=== PATIENT | male | born 1960 | race Caucasian/White ===

== ENCOUNTER → 2020-05-02 09:39 | Outpatient (CLI) | payer BC, SELFPAY ==
--- NOTE | 2020-05-02 09:49 | XR_ITS ---
PROCEDURE: XR CERVICAL SPINE 5V CLINICAL INDICATION: RT CERVICAL RADICULOPATHY COMPARISON: No exams were available for comparison FINDINGS: No fracture or dislocation. No lytic or blastic change. There is normal mineralization. There is degenerative disc disease at C5-C6 and to lesser degree at C6-C7. No significant foraminal narrowing is evident. IMPRESSION: Mild degenerative disc disease C5-C6 and C6-C7 Dictated by: Petar Sullivan MD 05/02/2020 15:12 Petar Sullivan MD in [place] 05/02/2020 15:12
== END ==
PROVIDERS: PCP Family Medicine; Visit Provider Family Medicine
DX: M54.12 Radiculopathy, cervical region (principal)
CPT/HCPCS: 72050

== ENCOUNTER 2020-05-29 09:00 | Outpatient (RCR) | payer BC, SELFPAY ==
--- NOTE | 2020-05-14 10:41 | HMH.PTOPEV ---
PT Outpatient Evaluation Rehab PT Outpatient Evaluation Start: 05/14/20 10:13 Freq: Status: Active Protocol: Document 05/14/20 10:13 ANDERS (Rec: 05/14/20 10:41 ANDERS [id number]) Electronically Signed By Hal Gutierrez PT 05/14/20 10:13 Outpatient Therapy Subjective History Subjective History This is the initial Physical Therapy evaluation for Quentin Zendejas. Pt is a 60 y/o male referred to PT for c/o RUE paresthesia and cervical radiculopathy. Pt reports he began having symptoms 2-3 month ago and has been steadily progressively getting worse. Pt reports when he turns his head to the R his S& S starts almost immediately. 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 Chief Complaint Paresthesia,Weakness,Decreased Seasonal Tax Preparer Strength,Decreased Coordination Symptom Type Numbness,Tingling Symptoms Relieved By Rest/Positioning Symptoms Aggravated By Physical Activity Prior Functional Limitations None Current Functional Limitations Lifting,Recreation Activity Symptom Description Intermittent Level of pain today (0-10) 0 Pain scale - at its best (0-10) 0 Pain scale - at its worst (0-10) 0 Cervical Eval Palpation Cervical/Thoracic Palpation Findings None/Normal Posture Head/C-Spine Posture Sitting Position C-Spine Flattened Head/C-Spine Posture Standing Position C-Spine Flattened AROM Cervical Spine Extension Active Range of 50 Motion (degrees) Cervical Spine Flexion Active Range of 40 Motion (degrees) Cervical Spine Right Lateral Flexion 25 Active Range of Motion (degrees) Cervical Spine Left Lateral Flexion 30 Active Range of Motion (degrees) Cervical Spine Right Rotation Active 70 Range of Motion (degrees) Cervical Spine Left Rotation Active 80 Range of Motion (degrees) Altered Sensation Right Upper extremity Dermatomes C6,C7,C8 Comment decreased sensation on R Special Test C-Spine Foraminal Compression (Spurling) Positive Right Test C-Spine Foraminal Distraction Test Positive C-Spine Compression Test Negative Left,Negative Right Outpatient Therapy Assessment Impairments Problems/Impairmments Impaired Range of Motion,
== END 2020-05-29 09:05 | disposition home or self-care (01) ==
LOC: PT 09:00
PROVIDERS: PCP Family Medicine; Visit Provider Family Medicine
DX: M54.12 Radiculopathy, cervical region (principal)
CPT/HCPCS: 97010; 97012; 97014; 97110; 97163; G0283

== ENCOUNTER → 2020-06-06 10:56 | Outpatient (CLI) | payer BC, SELFPAY ==
--- NOTE | 2020-06-06 10:58 | MR_ITS ---
PROCEDURE: MR CERVICAL SPINE WO CON CLINICAL INDICATION: RIGHT CERVICAL RADICULOPATHY PT C/O RT SIDED CERVICAL RADICULOPATHY WITHOUT TRAUMA OR INJURY. PRIOR C-SPINE XRAYS DONE 05/02/20 COMPARISON: CR XR CERVICAL SPINE 5V from 05/02/2020 TECHNIQUE: Standard multiplanar multiecho sequences are performed without contrast. 3-D MIP and myelographic images are also rendered and reviewed FINDINGS: There is a mild degree of motion artifact which somewhat obscures fine detail. There is normal alignment. The craniocervical junction has an unremarkable appearance. C2-C3: Unremarkable. C3-C4: Unremarkable. C4-C5: Unremarkable. C5-C6: Mild degenerative disc disease with minimal bulging disc with mild bilateral foraminal narrowing. There is some hypertrophic changes noted the somewhat laterally on the right causing right sided foraminal narrowing. C6-C7: Mild degenerative disc disease with mild bulging disc and mild bilateral foraminal narrowing slightly greater on the right. C7-T1: Unremarkable. IMPRESSION: Mild degenerative disc disease at C5-C6 and C6-C7 with mild bulging disc and with mild bilateral foraminal narrowing as described above. No extruded herniated disc or canal stenosis apparent. Motion artifact does somewhat limit fine detail. Subtle abnormalities may not be identified due to the limitations Dictated by: Petar Sullivan MD 06/11/2020 09:22 Petar Sullivan MD in [place] 06/11/2020 09:22
--- NOTE | 2020-06-06 11:04 | XR_ITS ---
PROCEDURE: XR ORBIT BILATERAL MIN 4V CLINICAL INDICATION: RULE OUT METAL FOREIGN BODY FOR MRI COMPARISON: FINDINGS: Mukherjee view show both orbital rims and orbital floors of the intact. There is no metallic foreign body seen in either orbit. The frontal sinuses are clear, there may be mild mucoperiosteal thickening in the maxillary sinuses. IMPRESSION: Negative for metallic foreign body Dictated by: Dr. Liang Nicholas MD 06/06/2020 11:28 Dr. Liang Nicholas MD in [place] 06/06/2020 11:28
== END ==
PROVIDERS: PCP Family Medicine; Visit Provider Family Medicine
DX: H05.53 Retained (old) foreign body following penetrating wound of bilateral orbits (principal); M54.12 Radiculopathy, cervical region
CPT/HCPCS: 70200; 72141; 76376

== ENCOUNTER 2024-02-03 10:01 | Day surgery (SDC) | payer BC, SELFPAY ==
[2024-02-01 11:33] VITALS: BMI 29.8
[2024-02-03] VITALS (8 sets, daily range): BP systolic 96–152; BP diastolic 59–91; PULSE 70–76; RESP 16–18; TEMP 36.3; O2SAT 97–99; BMI 29.8
[2024-02-03] MEDS: LACTATED RINGERS 1000ML 1,000 ML 100 ML IV (11:26)
--- NOTE | 2024-02-03 11:38 | P.PNANES_ITS ---
[facility] Disclaimer: The information contained in this section may have been updated after the patient was seen, as this information can be updated by other users. Medical History Type 2 diabetes mellitus Hypertension Family History Other No significant family history Social History Smoking Status: Current every day smoker alcohol intake: never substance use type: marijuana current occupational status: employed Travel in the last 8 weeks: None caffeine: Yes [facility] Anesthesia Checklist Patient Identification Patient Identification: Arm Band and Verbal (Name & ) Structural Data Admitted From: Home Planned Operative Procedure/s: Colonoscopy Consent for Planned Operative Procedure(s) Verified: Yes Verified Documents: Surgical Consent and History and Physical NPO Status Verified Time NPO: 00:00 Additional verifications Anesthesia Reactions: No Airway Assessment Mallampati Score:: Class III C-Spine Mobility Assessed: Yes TMJ Mobility Assessed: Yes Dentition: Edentulous Neurological Assessment Level of Consciousness: Awake Hx Seizures: No Numbness or tingling in extremities: No Anesthesia Plan Anesthesia Risk discussed: Yes Anesthesia Plan: Verified ASA Class: II Anesthesia Type: MAC
--- NOTE | 2024-02-03 14:23 | P.PCN_ITS ---
Procedure: Date: 02/03/24 Patient Date of :: 1960 Procedure Performed:: Colonoscopy Indications:: The patient is a 63-year-old who presents for screening colonoscopy. This is the patient's first colonoscopy Performing Provider:: Atilio Staples MD Referring Provider:: Ronni Pitt MD Sedation:: See RN records Procedure:: After placing the patient in the left lateral decubitus position, the colo noscopy was gently inserted into the rectum and under direct visualization advanced to the cecum which was identified by transillumination in the right lower quadrant, identification of the ileocecal valve, appendiceal orifice, and cecal strap. Color, texture, mucosa, and anatomy of the colon were carefully examined with the scope. Findings:: The quality of the bowel preparation was good except for the sigmoid colon which was fair. Time was spent irrigating and cleansing mucosa. There was a large (greater than 10 mm) pedunculated polyp in the sigmoid colon, the polyp appeared inflammed. The polyp was removed by hot snare polypectomy. The polyp was retrieved. There was a medium size (8 to 9 mm) sessile polyp in the sigmoid colon. The polyp was removed by hot snare polypectomy. The polyp was retrieved. There were four sessile polyps measuring between 4 to 7 mm in size in the sigmoid colon. The polyps removed by cold snare polypectomy. There was sigmoid diverticulosis. There were five sessile polyps in the rectum measuring between 4 to 7 mm in size. The polyps removed by cold snare polypectomy. There were internal hemorrhoids seen on retroflexion view of the the rectum. Impression: Multiple polyps within the rectum and sigmoid colon Diverticulosis Recommendations:: Await pathology results Repeat colonoscopy in 1 to 2 years depending on pathology results Complications:: None Estimated blood obtained (mL): 0 Colonoscopy Component Colonoscopy Component Was a colonoscopy performed during today's procedure?: Yes Recommended follow up colonoscopy of at least 10 years?: Yes
--- NOTE | 2024-02-03 14:30 | P.PNANES_ITS ---
[facility] Anesthesia Record Part I Anesthesia Record I Intake, IV Amount: 300 Hydration: Adequate Estimated blood loss (mL): 5 Urine output (mL): 0 Blood Products used (#): none Blood Pressure: 96/59 SaO2: 97 Pulse Rate: 72 Airway Patency: Patent Respiratory Rate: 16 Temperature: 97.4 F Patient is:: Awake (Talking) and Stable Stable to PACU at:: 14:30
[2024-02-05 06:37] LABS: POC Glucose,Bedside 126 (70-110)
== END 2024-02-03 14:54 | disposition home or self-care (01) ==
PROVIDERS: PCP Family Medicine; Visit Provider Internal Medicine
PROC: (CPT 45385; principal; 2024-02-03 11:30)
DX: Z12.11 Encounter for screening for malignant neoplasm of colon (principal); D12.7 Benign neoplasm of rectosigmoid junction; D12.5 Benign neoplasm of sigmoid colon; K63.5 Polyp of colon; K57.30 Diverticulosis of large intestine without perforation or abscess without bleeding; K64.8 Other hemorrhoids
CPT/HCPCS: 45385; 82962; J7120

== ENCOUNTER 2024-05-04 10:02 | Emergency (ER) | payer BC, SELFPAY ==
[2024-05-04 11:30] VITALS: BP 121/75; PULSE 84; RESP 18; TEMP 36.6; O2SAT 95; BMI 28.5
--- NOTE | 2024-05-04 11:41 | EXP.UTC ---
Discharge Plan Disposition Patient Disposition: Home, Self-Care Condition: Good Prescriptions Prescriptions: New cyclobenzaprine 10 mg Tablet 10 mg PO BID PRN (Reason: Muscle Spasm) Qty: 20 0RF methylprednisolone 4 mg Tablets,Dose Pack 4 mg PO DIRECTED 6 Days Qty: 21 0RF Rx Instructions: Take 1 pack as directed for 6 days No Action atorvastatin 10 mg Tablet 10 mg PO HS amlodipine 2.5 mg Tablet 2.5 mg PO DAILY Mounjaro 2.5 mg/0.5 mL Pen Injector 2.5 mg SQ WEEKLY Rx Instructions: for 4 weeks Referrals Follow up/Referrals: Ayden Pitt MD [Primary Care Provider] - See instructions Activity Restrictions/Add. Instructions Additional Instructions/Restrictions: Go home and rest. It would be best if you rested tomorrow too. No heavy lifting & No twisting for the next few days. Take the oral medications as directed. The muscle relaxer (cyclobenzaprine--Flexeril) will make you drowsy, so don't drive or operate heavy machinery after taking it. Don't start the oral steroids (medrol dose pack) until tomorrow, since you had the shots in here today. Follow up with your regular doctor. GO TO THE ER FOR ANY WORSENING SYMPTOMS OR CONCERN, ESPECIALLY BOWEL OR BLADDER ISSUES, SADDLE AREA NUMBNESS, FEVER, ETC Clinical Impressions Clinical Impression: Low back pain Instructions Patient Instructions: Cyclobenzaprine, Methylprednisolone, Ketorolac Injection, Dexamethasone Injection Print Language Print Language: [place] Discharge ED Provider: Paul Hernandez [facility] General Stated complaint: lower back pain Time Seen by Provider: 05/04/24 11:41 Related Data Home Medications ?Medication ?Instructions ?Recorded ?Confirmed amlodipine 2.5 mg tablet 2.5 mg PO DAILY 01/26/24 05/04/24 atorvastatin 10 mg tablet 10 mg PO HS 01/26/24 05/04/24 tirzepatide 2.5 mg/0.5 mL 2.5 mg SQ WEEKLY 01/26/24 05/04/24 subcutaneous pen injector (Mounjaro) Previous Rx's ?Medication ?Instructions ?Recorded cyclobenzaprine 10 mg tablet 10 mg PO BID PRN Muscle Spasm #20 05/04/24 tabs methylprednisolone 4 mg tablets in 4 mg PO DIRECTED 6 days #21 tabs 05/04/24 a dose pack Allergies Allergy/AdvReac Type Severity Reaction Status Date / Time No Known Allergies Allergy Verified 05/04/24 11:44 [facility] Disclaimer: The information contained in this section may have been updated after the patient was seen, as this information can be updated by other users. Medical History (Updated 05/04/24 @ 12:26 by Paul Hernandez APRN) Hyperlipidemia Type 2 diabetes mellitus Hypertension Surgical History (Updated 05/04/24 @ 11:45 by Zeina De La Rosa RN) History of cholecystectomy Family History Other No significant family history Social History (Updated 02/03/24 @ 11:40 by Dina Medina CRNA) Smoking Status: Current every day smoker alcohol intake: never substance use type: marijuana current occupational status: employed Travel in the last 8 weeks: None caffeine: Yes ROS Obtained: Yes All systems reviewed & no additional complaints except as documented Constitutional Constitutional: Denies chills and Denies fever(s) Eyes Eyes: Denies eye discharge ENT Ears, Nose, Mouth, and Throat: Denies dizziness, Denies otalgia, Denies neck pain and Denies sore throat Cardiovascular Cardiovascular: Denies chest pain Respiratory Respiratory: Denies shortness of breath, Denies chest congestion, Denies cough, Denies stridor and Denies wheezing Gastrointestinal Gastrointestingal: Denies nausea or vomiting Musculoskeletal Musculoskeletal: Reports as per HPI, Reports back pain and Denies neck pain Integumentary/Breasts Skin/Breast: Denies rash Neurologic Neurologic: Denies dizziness and Denies paresthesias Allergic/Immunologic Allergic/Immunologic: Denies wheezing Physical Exam General General appearance: alert and in no apparent distress Head Head exam: atraumatic, normocephalic and normal inspection Eye Eye exam: Present normal appearance, PERRL and EOMI ENT ENT exam: Present normal exam, normal oropharynx, mucous membranes moist, TM's normal bilaterally and normal external ear exam Neck Neck exam: Present normal inspection, full ROM and trachea midline; Absent meningismus or lymphadenopathy Chest Chest inspection: Present normal inspection and symmetric chest wall rise; Absent tenderness Respiratory Respiratory exam: Present normal lung sounds bilaterally; Absent respiratory distress Cardiovascular Cardiovascular exam: Present regular rate and normal rhythm; Absent JVD Abdominal Exam Abdominal exam: Present soft and normal bowel sounds; Absent distention, tenderness or guarding Extremities Exam Extremities exam: Present normal inspection, full ROM and normal capillary refill; Absent calf tenderness Back Exam Back exam: Present normal inspection; Absent tenderness Neurological Exam Neurological exam: Present alert, oriented X3, CN II-XII intact, normal gait and reflexes normal; Absent motor sensory deficit Expanded Neurological Exam Speech: Present fluid speech Cranial nerves: Normal: EOM function (II, III, IV, ), facial sensation (V), facial palsy (VII), gag reflex (IX), spinal accessory function (XI) and tongue deviation (XII) Cerebellar function: normal gait Motor strength - LUE: 5/5 Motor strength - RUE: 5/5 Motor strength - LLE: 5/5 Motor strength - RLE: 5/5 Upper motor neuron exam: Normal: ector neglect and sensory extinction Sensory exam upper extremity: Normal: light touch and 2 point discrimination Sensory exam lower extremity: Normal: light touch and 2 point discrimination DTR: 2+: biceps (L), biceps (R), patellar (L), patellar (R), Achilles tendon (L) and Achilles tendon (R) Spinal cord function: Absent saddle anesthesia Psychiatric Psychiatric exam: Present normal affect and normal mood Skin Skin exam: Present warm, dry, intact and normal color Lymphatic Lymphatic Findings: no adenopathy Medical Decision Making Medical Records Medical records reviewed: No I reviewed the patient's medical records. Screening: Per USPSTF and CDC recommendations, given the prevalence of disease in our region, it is our hospital?s policy to screen for HIV and viral Hepatitis for all patients aged 18 and over and those with ongoing risk factors. Kaz Inquiry Pt receiving controlled substance: No
[2024-05-04 11:44] LABS: Apearance,Urine Clear (Clear); Bilirubin,Urine Negative (Negative); Blood, Urine Negative (Negative); Color,Urine Yellow (Yellow); Glucose,Urine (UA) Negative (Negative); Ketones,Urine Negative (Negative); Protein,Urine Negative (Negative); Specific Gravity, Urine 1.005 (1.005-1.030); UTC Leukocyte Esterase,Urine Negative (Negative); UTC Nitrate,Urine Negative (Negative); Urobilinogen,Urine 0.2 EU/dl (0.2)
[2024-05-04] MEDS: KETOROLAC 60MG/2ML VIAL 60 MG IM (12:15)
[2024-05-04] MEDS: DEXAMETHASONE 4MG/ML 1ML VIAL 8 MG IM (12:15)
[2024-05-04 12:29] VITALS: BP 121/75; PULSE 84; RESP 18; TEMP 36.6; O2SAT 95
== END 2024-05-04 12:32 | disposition home or self-care (01) ==
PROVIDERS: Emergency Provider Nurse Practitioner Family; PCP Family Medicine
DX: M54.50 Low back pain, unspecified (principal)
CPT/HCPCS: 81003; 96372; 99213; G0381; J1100; J1885

== ENCOUNTER 2024-06-17 08:17 | Outpatient (CLI) | payer BC, SELFPAY ==
--- NOTE | 2024-06-17 08:23 | XR_ITS ---
FINAL REPORT CLINICAL HISTORY: Lower back pain FINDINGS: 3 views of the lumbar spine were obtained. There is no prior exam for comparison. There is no acute fracture. There is grade 1 anterior spondylolisthesis of L4 on L5. Alignment is otherwise normal. Vertebral body height is preserved. There is multilevel degenerative disc disease, most pronounced at L5-S1. No acute paraspinal abnormality. IMPRESSION: Grade 1 anterior spondylolisthesis of L4 on L5. Multilevel degenerative disc disease. Reviewed, Interpreted and Dictated by Celia Jackson MD Transcribed by Veronica La Authenticated and [facility]
--- NOTE | 2024-06-17 08:23 | XR_ITS ---
FINAL REPORT CLINICAL HISTORY: SI JOINT PAIN COMPARISON: None FINDINGS: A single view of the pelvis was obtained. There is no acute fracture or dislocation. The visualized joint spaces are normally aligned. The soft tissues are unremarkable. IMPRESSION: No acute bony abnormality. Reviewed, Interpreted and Dictated by Celia Jackson MD Transcribed by Veronica La Authenticated and [facility]
== END 2024-06-17 23:59 | disposition home or self-care (01) ==
LOC: RAD 08:18
PROVIDERS: PCP Family Medicine; Visit Provider Family Medicine
DX: M53.3 Sacrococcygeal disorders, not elsewhere classified (principal); M54.50 Low back pain, unspecified
CPT/HCPCS: 72100; 72170

== ENCOUNTER 2024-06-24 09:11 | Outpatient (POV) | payer BC, SELFPAY ==
[2024-06-24 09:26] VITALS: BP 128/81; PULSE 84; RESP 16; O2SAT 98; BMI 30.2
--- NOTE | 2024-06-24 11:48 | A.OFFVIS_ITS ---
HPI Data of Consult Patient: new to practice Consult date: 06/24/24 Requesting Physician: Evette Milton APRN Primary Care Provider: Ayden Pitt MD Consult Narrative Reason for consult: Low back pain, groin pain History of present illness: Mr. Zendejas is a 64 year old male who presents today as a new patient. He is a referral from [facility]. Today he rates his pain a 0 out of 10. Patient states that he has had chronic low back pain for years however about 2 weeks ago it got really bad where it was radiating from his low back to his groin and denies any radiating symptoms into his legs. He does describe it as a constant aching, throbbing sensation that was worse with any type of activity. Patient states at that time the only thing that gave any relief was standing up and leaning against a wall. He did try oral medication, heat and ice and topicals with some improvement but very minimal. He does state for what ever reason the pain has eased off over the last week and that he has not had any complaints. He states he went out and worked yesterday and just had very minimal that was very manageable. Patient did want to go ahead and complete this visit. He states that he was ordered physical therapy however he did not end up starting this but has had it in the past which made no additional improvement. Patient does state that his primary care did start him on some anti-inflammatory medication. His Kaz has been reviewed and is appropriate. CC: Evette Milton APRN [facility] Disclaimer: The information contained in this section may have been updated after the patient was seen, as this information can be updated by other users. Medical History Hyperlipidemia Type 2 diabetes mellitus Hypertension Surgical History History of cholecystectomy Family History Other No significant family history Social History Smoking Status: Current every day smoker alcohol intake: never substance use type: marijuana current occupational status: other Travel in the last 8 weeks: None caffeine: Yes Review of Systems Review of Systems Review of systems:: pertinent systems reviewed and negative unless documented below Review of systems (narrative): Review of Systems: General: No recent weight changes, no fever, no sleep disturbances Respiratory: No cough, no shortness of air, no recurring pulmonary infections Cardiovascular/peripheral vascular: No chest pain, no palpitations, no edema, no shortness of breath Gastrointestinal: No new onset incontinence, normal bowel movements reported Genitourinary: No new onset incontinence Musculoskeletal: Low back pain, groin pain Psychiatric: [Normal mood/affect] Neurological: [Denies weakness in extremities], [denies balance issues] Meds Home Medications and Allergies Home Medications ?Medication ?Instructions ?Recorded ?Confirmed ?Type amlodipine 2.5 mg tablet 2.5 mg PO DAILY 01/26/24 06/24/24 History atorvastatin 10 mg tablet 10 mg PO HS 01/26/24 06/24/24 History tirzepatide 2.5 mg/0.5 mL 2.5 mg SQ WEEKLY 01/26/24 06/24/24 History subcutaneous pen injector (Adriana) cyclobenzaprine 10 mg tablet 10 mg PO BID PRN Muscle Spasm #20 05/04/24 06/24/24 Rx tabs methylprednisolone 4 mg tablets in 4 mg PO DIRECTED 6 days #21 tabs 05/04/24 06/24/24 Rx a dose pack New Prescriptions to Start Prescriptions: Allergies Allergy/AdvReac Type Severity Reaction Status Date / Time No Known Allergies Allergy Verified 05/04/24 11:44 Objective Vital signs: Pulse Resp BP Pulse Ox O2 Del Method 84 16 128/81 98 Room Air 06/24/24 09:26 06/24/24 09:26 06/24/24 09:26 06/24/24 09:26 06/24/24 09:26 Additional findings Additional findings: FINDINGS: 3 views of the lumbar spine were obtained. There is no prior exam for comparison. There is no acute fracture. There is grade 1 anterior spondylolisthesis of L4 on L5. Alignment is otherwise normal. Vertebral body height is preserved. There is multilevel degenerative disc disease, most pronounced at L5-S1. No acute paraspinal abnormality. IMPRESSION: Grade 1 anterior spondylolisthesis of L4 on L5. Multilevel degenerative disc disease. Reviewed, Interpreted and Dictated by Celia Jackson MD Transcribed by Veronica La Authenticated and [facility] FINDINGS: A single view of the pelvis was obtained. There is no acute fracture or dislocation. The visualized joint spaces are normally aligned. The soft tissues are unremarkable. IMPRESSION: No acute bony abnormality. Reviewed, Interpreted and Dictated by Celia Jackson MD Transcribed by Veronica La Authenticated and [facility] Assessment and Plan *Assessment and plan (1) Low back pain: Status: Acute Category: Medical Code(s): M54.50 - Low back pain, unspecified Plan Patient at this time is no longer experiencing significant low back and groin pain. I did discuss with the patient that he is now an established patient and he can always call us if he needs his appointments to be moved up or pushed out based off his pain. I will order the patient a compounded cream and have him tentatively come into clinic in 1 month for reevaluation of symptoms and plan of care. Patient agrees with this plan. Patient has been instructed to contact the clinic with any concerns before the next appointment. Dr. Keith has reviewed this note and agrees with this plan of care. This note was dictated using voice recognition software and make contain errors or omissions. All injections are used with Lidocaine, Bupivacaine and Depo Medrol. Occasionally urine drug screen is needed to verify patient's compliance with our office pain contract. This is ordered based off specific treatments related to chronic pain with the potential to abuse certain medications.
== END 2024-06-24 23:59 | disposition home or self-care (01) ==
PROVIDERS: PCP Family Medicine; Visit Provider Nurse Practitioner Family
DX: M54.50 Low back pain, unspecified (principal)
CPT/HCPCS: 99202; G0463

== ENCOUNTER 2024-06-27 09:34 | Outpatient (CLI) | payer BC, SELFPAY ==
--- NOTE | 2024-06-27 | XR_ITS ---
FINAL REPORT CLINICAL HISTORY: ANTEROLISTHESIS c/o low back pain COMPARISON: 06/17/2024 FINDINGS: LUMBOSACRAL SPINE SERIES WITH FLEXION AND EXTENSION Five views of the lumbosacral spine with flexion and extension views were obtained. There is no fracture present. There is stable grade 1 spondylolisthesis of L4 on L5. Minimal retrolisthesis is noted of L3 on L4 and L5 on S1. Diffuse degenerative disc disease is most pronounced at L5-S1 with vacuum disc change. Spondylolisthesis of L4 on L5 is stable on flexion and extension views. IMPRESSION: No evidence of fracture. Degenerative changes with stable grade 1 spondylolisthesis of L4 on L5. Reviewed, Interpreted and Dictated by Soy Francisco MD Transcribed by Alexandra Tucker Authenticated and [facility]
== END 2024-06-27 23:59 | disposition home or self-care (01) ==
LOC: RAD 09:36
PROVIDERS: PCP Family Medicine; Visit Provider Family Medicine
DX: M43.16 Spondylolisthesis, lumbar region (principal); M54.50 Low back pain, unspecified
CPT/HCPCS: 72114